=== PATIENT | female | born 1960 | race Caucasian/White ===

== ENCOUNTER 2017-06-20 16:02 | Emergency (ER) | END 2017-06-20 20:45 | disposition left against medical advice (07) ==

== ENCOUNTER 2018-10-31 09:08 | Emergency (ER) | payer OTHER ==
[~2018-10-31] VITALS: Wt 80.0 kg
[~2018-10-31 09:08] MED LIST: ACET500T84 PO; ASPI-831 PO; ATOR-2 PO; BENA10TA4 PO; FLUO10CA26 PO; LABE200T43 PO; NIFE60TA18 PO; PRA40 PO; TAMS-14 PO
[2018-10-31] MEDS ORDERED: ACETAMINOPHEN 500 MG TAB PO STA (09:48)
--- NOTE | 2018-10-31 10:15 | ERD ---
ER Documentation Chief Complaint Chief Complaint NON TRAUMATIC R ARM PAIN AND NUMBNESS. WEAK FROM PREV CVA, NO CP OR SOB HPI This is a pleasant 57-year-old female who presents for evaluation of right-sided arm pain. She had no history of trauma, she has no states that she had numbness, patient states this is chronic, and she has not had any new neurologic symptoms, she denies any new weakness, she has not had a fever, has not noted any redness or skin changes. Otherwise she denies any chest pain, she has had no recent falls denies headache, no confusion, she is having normal urinary output. ROS All systems reviewed and are negative except as per history of present illness. Medications Home Meds Active Scripts Aspirin (Aspirin) 81 Mg Chew, 81 MG PO DAILY, #120 Prov:ANEL BRUNSON 05/16/14 Reported Medications Nifedipine* (Nifedipine ER*) 60 Mg Tablet.sa, 60 MG PO DAILY, TAB.SA 01/21/15 Labetalol Hcl* (Normodyne*) 200 Mg Tab, 400 MG PO BID, TAB 01/21/15 Pravastatin Sodium* (Pravachol*) 40 Mg Tablet, 40 MG PO HS, TAB 01/21/15 Benazepril Hcl* (Benazepril Hcl*) 10 Mg Tablet, 10 MG PO DAILY, TAB 01/21/15 Fluoxetine Hcl* (Prozac*) 10 Mg Capsule, 10 MG PO DAILY, CAP 01/21/15 Acetaminophen (Q-Pap Extra Strength) 500 Mg Tablet, 500 MG PO Q8 PRN for PAIN 01/21/15 Tamsulosin Hcl* (Flomax*) 0.4 Mg Cap.er.24h, 0.4 MG PO DAILY, CAP 01/21/15 Atorvastatin* (Atorvastatin*) 80 Mg Tablet, 80 MG PO HS, TAB 05/14/14 Allergies Allergies: Coded Allergies: No Known Allergies (Verified Allergy, Mild, 01/21/15) PMhx/Soc History of Surgery: Yes () Anesthesia Reaction: No Hx Neurological Disorder: Yes (CVA) Hx Respiratory Disorders: No Hx Cardiac Disorders: Yes (HTN) Hx Psychiatric Problems: No Hx Miscellaneous Medical Probl: Yes (Previous CVA c R hemiplegia, HTN, insomnia, dyslipidemia, acute renal disea) Hx Alcohol Use: No Hx Substance Use: No Hx Tobacco Use: No Smoking Status: Never smoker Physical Exam Vitals Vital Signs Date Temp Pulse Resp B/P (MAP) Pulse Ox O2 O2 Flow FiO2 Time Delivery Rate 10/31/18 98.8 76 18 233/114 98 09:14 (153) Physical Exam Const: Well-developed, well-nourished, nontoxic Head: Atraumatic Eyes: Normal Conjunctiva ENT: Normal External Ears, Nose and Mouth. Neck: Full range of motion. No meningismus. Resp: Clear to auscultation bilaterally, no wheezes rales or rhonchi Cardio: Regular rate and rhythm, no murmurs Abd: Soft, non tender, non distended, no rebound or guarding. Normal bowel sounds Skin: No petechiae or rashes Back: No midline or flank tenderness Ext: No cyanosis, or edema Neur: Awake and alert. There is notable right upper extremely weakness and can present to the left, as well as right lower extremity (chronic). Otherwise there is no notable pronator drift, no facial droop, cranial nerves II 12 intact Psych: Normal Mood and Affect Result Diagram: 10/31/1891910/31/18919 Results 24 hrs Laboratory Tests Test 10/31/18 09:20 White Blood Count 9.5 10^3/ul Red Blood Count 4.51 10^6/ul Hemoglobin 12.7 g/dl Hematocrit 39.4 % Mean Corpuscular Volume 87.4 fl Mean Corpuscular Hemoglobin 28.2 pg Mean Corpuscular Hemoglobin Concent 32.2 g/dl Red Cell Distribution Width 13.2 % Platelet Count 274 10^3/UL Mean Platelet Volume 10.1 fl Immature Granulocytes % 0.400 % Neutrophils % 62.9 % Lymphocytes % 27.0 % Monocytes % 7.3 % Eosinophils % 1.6 % Basophils % 0.8 % Nucleated Red Blood Cells % 0.0 /100WBC Immature Granulocytes # 0.040 10^3/ul Neutrophils # 6.0 10^3/ul Lymphocytes # 2.6 10^3/ul Monocytes # 0.7 10^3/ul Eosinophils # 0.2 10^3/ul Basophils # 0.1 10^3/ul Nucleated Red Blood Cells # 0.0 10^3/ul Sodium Level 146 mmol/L Potassium Level 3.8 mmol/L Chloride Level 109 mmol/L Carbon Dioxide Level 25 mmol/L Anion Gap 12 Blood Urea Nitrogen 22 mg/dl Creatinine 1.40 mg/dl Est Glomerular Filtrat Rate mL/min 38 mL/min Glucose Level 180 mg/dl Calcium Level 8.9 mg/dl Total Bilirubin 0.4 mg/dl Direct Bilirubin 0.00 mg/dl Indirect Bilirubin 0.4 mg/dl Aspartate Amino Transf (AST/SGOT) 22 IU/L Alanine Aminotransferase (ALT/SGPT) 27 IU/L Alkaline Phosphatase 141 IU/L Troponin I < 0.012 ng/ml Total Protein 7.8 g/dl Albumin 4.2 g/dl Globulin 3.60 g/dl Albumin/Globulin Ratio 1.16 Current Medications Medications Dose Sig/Maria Luisa Start Time Status Last (Trade) Ordered Route PRN Stop Time Admin Dose Reason Admin 1,000 mg ONCE STAT 10/31/18 DC 10/31/18 Acetaminophen PO 09:48 10/31/18 10:05 (Tylenol 09:49 Tab) Procedures/MDM This is a 57-year-old female who presents for evaluation of arm pain. On exam patient has no deformities, no evidence of trauma she has no signs or symptoms of infection. She has no new neurologic deficits whatsoever concerning for acute stroke. She was noted to be hypertensive, other than the arm pain she is asymptomatic, her labs including renal function and troponin were negative, chest x-ray was also unremarkable, patient will follow up with her primary care doctor for management of her hypertension at discharge she was in no distress. EKG: Rate/Rhythm: Normal Sinus Rhythm QRS, ST, T-waves: No changes consistent w/ acute ischemia Impression: No evidence of ischemia or arrhythmia Departure Diagnosis: Primary Impression: Arm pain Laterality: unspecified laterality Qualified Codes: M79.603 - Pain in arm, unspecified Condition: Stable Patient Instructions: Pain, Uncertain Cause (Acute) Additional Instructions: Call your primary care doctor TOMORROW for an appointment during the next 2-3 days.See the doctor sooner or return here if your condition worsens before your appointment time. KALA SANTOS MD Oct 31, 2018 10:15
[2018-10-31 10:24] VITALS: BP 210/98; PULSE 78; RESP 16
[2018-10-31] MEDS ORDERED: INSU100I33 SC (11:16)
[2018-10-31] MEDS ORDERED: ASPI-817 PO (11:16)
[2018-10-31] MEDS ORDERED: ATOR40TA68 PO (11:16)
[2018-10-31] MEDS ORDERED: CARV12.598 PO (11:17)
[2018-10-31] MEDS ORDERED: CHLO25TA2 PO (11:17)
[2018-10-31] MEDS ORDERED: DOCU-144 PO (11:17)
[2018-10-31] MEDS ORDERED: FLUC150T41 PO (11:18)
[2018-10-31] MEDS ORDERED: LOSA100T15 PO (11:19)
[2018-10-31] MEDS ORDERED: NIFE60TA18 PO (11:19)
[2018-10-31] MEDS ORDERED: HYDR-4011 PO (11:20)
[2018-10-31] MEDS ORDERED: ACET-141 PO (11:21)
[2018-10-31] MEDS ORDERED: CHOL100062 PO (11:21)
== END 2018-10-31 10:32 | disposition home or self-care (01) ==
LOC: E/R 09:08
DX: M79.601 Pain in right arm (principal); I10 Essential (primary) hypertension; Z86.73 Personal history of transient ischemic attack (TIA), and cerebral infarction without residual deficits; Z79.82 Long term (current) use of aspirin
CPT/HCPCS: 71045; 80053; 84484; 85025; 93005; Z7502; Z7610